=== PATIENT | female | born 1960 | race Caucasian/White ===

== ENCOUNTER 2018-09-20 09:54 | Inpatient (IN) | payer MEDICARE ==
[~2018-09-20] VITALS: Ht 157.5 cm; Wt 93.0 kg
[~2018-09-20 09:54] MED LIST: ALBU2.5V14 NEB; ALPR2TAB2 PO; ASCO500T3 PO; ASPI-630 PO; BUPR300T4 PO; CHOL10003 PO; CYAN1TAB15 SL; DOCU100C28 PO; ESTR1TAB15 PO; HYDR-2765 PO; LEVO200T PO; METO25TA4 PO; MIRT30TA3 PO; OMEG1CAP38 PO; OMEP20TA8 PO; OXYB15TA4 PO; PRAZ1CAP2 PO; SERT100T PO; SIMV20TA3 PO; SPIR1TAB PO; TIOT18CA IH
[2018-09-20 11:30] VITALS: BP 94/64
[2018-09-20] MEDS ORDERED: ALBU2.5V5 NEB (13:22)
[2018-09-20] MEDS ORDERED: GABA600T7 PO (13:22)
[2018-09-20] MEDS ORDERED: POTA20TA82 PO (13:22)
[2018-09-20] MEDS ORDERED: OXYB5TAB33 PO (13:22)
[2018-09-20] MEDS ORDERED: SERT100T PO (13:32)
[2018-09-20] MEDS ORDERED: POLY255P11 PO (13:32)
[2018-09-20] MEDS ORDERED: FURO20TA3 PO (13:32)
[2018-09-20] MEDS ORDERED: LEVO150T5 PO (13:32)
[2018-09-20] MEDS ORDERED: SACC250C PO (13:32)
[2018-09-20] MEDS ORDERED: METO10TA81 PO (13:32)
[2018-09-20] MEDS ORDERED: LIDO700A39 TP (13:32)
[2018-09-20] MEDS ORDERED: PRAZ5CAP2 PO (13:41)
[2018-09-20] MEDS ORDERED: ALPR2TAB5 PO (13:41)
[2018-09-20] MEDS ORDERED: OXYC1TAB15 PO (13:41)
[2018-09-20] MEDS ORDERED: OXYC-325 PO (13:41)
[2018-09-20] MEDS ORDERED: MIRT15TA3 PO (13:41)
[2018-09-20] MEDS: FUROSEMIDE 20 MG TABLET PO SCH (15:02)
[2018-09-20] MEDS: GABAPENTIN 300 MG CAPSULE. PO SCH ×2 (15:02→20:22)
[2018-09-20] MEDS: oxyCODONE/APAP 5/325 1 TAB TABLET PO PRN ×2 (15:03→19:32)
[2018-09-20 15:09] VITALS: BP 112/58
[2018-09-20] MEDS: ALBUTEROL SULFATE 2.5 MG/3 ML NEBU. NEB SCH ×2 (16:27→19:46)
[2018-09-20] MEDS: METOCLOPRAMIDE 10 MG TABLET. PO SCH ×2 (16:47→20:21)
[2018-09-20] MEDS: MICAFUNGIN 100 MG in IV DEXTROSE 5% 100ML 100 ML IV SCH (18:01)
[2018-09-20] MEDS: PIPERACILLIN/TAZOBACTAM 3.375 GM in IV NORMAL SALINE 50ML 50 ML IV SCH ×2 (19:04→23:54)
[2018-09-20] MEDS: VANCOMYCIN PER PHARMACY MC PRN (19:21)
--- NOTE | 2018-09-20 19:26 | NUR ---
Pharmacy Vancomycin Dosing Note S:Consulted to monitor and dose vancomycin started 09/20/18. O:FOSTER COX is a 57 year old F with Sepsis Height: 5 feet, 2 inches Weight: 93 kg [place] Body Weight: 50.10 Adjusted Body Weight: 67.26 Dosing Weight: Actual Other Antibiotics: Zosyn Mycamine LABS: Last BUN: 8 Last Creatinine: 0.8 Creatinine Clearance: 81 mL/min Last WBC: 2.1 Last Procalcitonin: Tmax (past 24 hours): 98.8 Last dose given 09/20/18 at 0855 (at [place]) Vancomycin Dosing: Loading Dose: 2000 mg x1 Dosing Weight: Actual Target Trough: 15-20 A: Based on: weight and renal function P: 1. Begin Vancomycin 1250 mg IV q12h 2. Follow up Trough level on 09/21/18 at 2030 3. Pharmacy will continue to monitor, follow and adjust therapy as needed. Sandra Tejada Dez, 09/20/18 [id number]
[2018-09-20] MEDS: ALPRAZolam 1 MG TABLET PO PRN (19:32)
[2018-09-20 19:34] VITALS: BP 146/71
[2018-09-20] MEDS: VANCOMYCIN 1.25 GM in IV NORMAL SALINE 250ML 250 ML IV SCH (20:20)
[2018-09-20] MEDS: PRAZOSIN 1 MG CAPSULE. PO SCH (20:21)
[2018-09-20] MEDS: POLYETHYLENE GLYCOL 3350 17 GM PACKET. PO SCH (20:22)
[2018-09-20] MEDS: LACTOBACILLUS RHAMNOSUS GG 1 CAPSULE. PO SCH (20:22)
[2018-09-20] MEDS: MIRTAZAPINE 15 MG TABLET PO SCH (20:22)
[2018-09-20] MEDS: METOPROLOL TART IMMED RELEASE 25 MG TABLET. PO SCH (20:22)
[2018-09-20] MEDS: SIMVASTATIN 20 MG TABLET PO SCH (20:23)
[2018-09-20 23:12] VITALS: BP 136/69
[2018-09-21 03:21] VITALS: BP 132/77
[2018-09-21] MEDS: oxyCODONE/APAP 5/325 1 TAB TABLET PO PRN ×4 (04:14→20:30)
[2018-09-21 05:25] LABS: BASO % 1 % (0-3); EOS # 0.1 x10^3/uL (0.0-0.7); EOS % 3 % (0-3); HEMATOCRIT 25.7 % (36.0-47.0); HEMOGLOBIN 8.5 g/dL (12.0-15.5); LYMPH % 44 % (24-48); MEAN CORPUSCULAR HEMOGLOBIN 29 pg (25-35); MEAN CORPUSCULAR HGB CONC 33 g/dL (31-37); MEAN CORPUSCULAR VOLUME 89 fL (79-100); MONO # 0.4 x10^3/uL (0.0-1.1); MONO % 17 % (0-9); NEUT # 0.8 x10^3uL (1.8-7.7); NEUT % 36 % (31-73); PLATELET COUNT 201 x10^3/uL (140-400); RED CELL DISTRIBUTION WIDTH 13.4 % (11.5-14.5); WHITE BLOOD COUNT 2.2 x10^3/uL (4.0-11.0)
[2018-09-21] MEDS: LEVOTHYROXINE 150 MCG TABLET PO SCH (05:45)
[2018-09-21] MEDS: PIPERACILLIN/TAZOBACTAM 3.375 GM in IV NORMAL SALINE 50ML 50 ML IV SCH ×3 (05:45→18:00)
[2018-09-21 06:03] LABS: ALBUMIN 2.6 g/dL (3.4-5.0); ALBUMIN/GLOBULIN RATIO 0.7 (1.0-1.7); CREATININE 0.6 mg/dL (0.6-1.0); GFR 102.7; POTASSIUM 3.1 mmol/L (3.5-5.1); TOTAL BILIRUBIN 0.2 mg/dL (0.2-1.0); TOTAL PROTEIN 6.4 g/dL (6.4-8.2)
[2018-09-21 07:22] VITALS: BP 132/71
[2018-09-21] MEDS ORDERED: POTASSIUM CHLORIDE 20 MEQ TABLET.ER. PO SCH (08:00)
[2018-09-21] MEDS: FUROSEMIDE 20 MG TABLET PO SCH ×2 (08:59→12:55)
[2018-09-21] MEDS: METOPROLOL TART IMMED RELEASE 25 MG TABLET. PO SCH ×2 (09:00→20:33)
[2018-09-21] MEDS: METOCLOPRAMIDE 10 MG TABLET. PO SCH ×4 (09:00→20:32)
[2018-09-21] MEDS: ESTRADIOL 1 MG TABLET. PO SCH (09:00)
[2018-09-21] MEDS ORDERED: LIDOCAINE (700MG/PATCH) PATCH. TD PRN (09:00)
[2018-09-21] MEDS: GABAPENTIN 300 MG CAPSULE. PO SCH ×3 (09:00→20:31)
[2018-09-21] MEDS: SERTRALINE 50 MG TABLET. PO SCH (09:00)
[2018-09-21] MEDS: OXYBUTYNIN CHLORIDE 5 MG TABLET PO SCH (09:00)
[2018-09-21] MEDS: LACTOBACILLUS RHAMNOSUS GG 1 CAPSULE. PO SCH ×2 (09:01→20:32)
[2018-09-21] MEDS: ALBUTEROL SULFATE 2.5 MG/3 ML NEBU. NEB SCH ×4 (09:08→19:56)
[2018-09-21] MEDS: POLYETHYLENE GLYCOL 3350 17 GM PACKET. PO SCH ×2 (09:59→20:27)
[2018-09-21 10:00] LABS: % ATYL 2 % (0-0); % BANDS 20 % (0-9); % EOS 4 % (0-5); % LYMPHS 38 % (24-48); % METAS 1 % (0-0); % MONOS 16 % (0-10); % MYELOS 1 % (0-0); % SEGS 18 % (35-66); PLT ESTIMATE ADEQUATE (ADEQUATE)
[2018-09-21] MEDS ORDERED: PIP/TAZO PER PHARMACY MC PRN (10:00)
[2018-09-21 10:01] LABS: POLYCHROMASIA SLIGHT; TEAR DROP CELLS OCC
[2018-09-21] MEDS: VANCOMYCIN 1.25 GM in IV NORMAL SALINE 250ML 250 ML IV SCH (10:03)
--- NOTE | 2018-09-21 10:39 | PDOC ---
Infectious Disease Note Vital Sign Vital Signs Vital Signs Date Time Temp Pulse Resp B/P (MAP) Pulse Ox O2 Delivery O2 Flow Rate FiO2 09/21/18 09:08 93 Room Air 09/21/18 09:00 97 132/71 09/21/18 07:22 98.7 18 2.0 98.7 Labs Lab Laboratory Tests Test 09/21/18 04:45 White Blood Count 2.2 x10^3/uL (4.0-11.0) Red Blood Count 2.90 x10^6/uL (3.50-5.40) Hemoglobin 8.5 g/dL (12.0-15.5) Hematocrit 25.7 % (36.0-47.0) Mean Corpuscular Volume 89 fL (79-100) Mean Corpuscular Hemoglobin 29 pg (25-35) Mean Corpuscular Hemoglobin Concent 33 g/dL (31-37) Red Cell Distribution Width 13.4 % (11.5-14.5) Platelet Count 201 x10^3/uL (140-400) Neutrophils (%) (Auto) 36 % (31-73) Lymphocytes (%) (Auto) 44 % (24-48) Monocytes (%) (Auto) 17 % (0-9) Eosinophils (%) (Auto) 3 % (0-3) Basophils (%) (Auto) 1 % (0-3) Neutrophils # (Auto) 0.8 x10^3uL (1.8-7.7) Lymphocytes # (Auto) 1.0 x10^3/uL (1.0-4.8) Monocytes # (Auto) 0.4 x10^3/uL (0.0-1.1) Eosinophils # (Auto) 0.1 x10^3/uL (0.0-0.7) Basophils # (Auto) 0.0 x10^3/uL (0.0-0.2) Segmented Neutrophils % 18 % (35-66) Band Neutrophils % 20 % (0-9) Lymphocytes % 38 % (24-48) Atypical Lymphocytes % (Manual) 2 % (0-0) Monocytes % 16 % (0-10) Eosinophils % 4 % (0-5) Metamyelocytes % 1 % (0-0) Myelocytes % 1 % (0-0) Platelet Estimate Adequate (ADEQUATE) Polychromasia Slight Tear Drop Cells Occ Sodium Level 141 mmol/L (136-145) Potassium Level 3.1 mmol/L (3.5-5.1) Chloride Level 103 mmol/L (98-107) Carbon Dioxide Level 26 mmol/L (21-32) Anion Gap 12 (6-14) Blood Urea Nitrogen 5 mg/dL (7-20) Creatinine 0.6 mg/dL (0.6-1.0) Estimated GFR (Cockcroft-Gault) 102.7 BUN/Creatinine Ratio 8 (6-20) Glucose Level 103 mg/dL (70-99) Calcium Level 8.0 mg/dL (8.5-10.1) Total Bilirubin 0.2 mg/dL (0.2-1.0) Aspartate Amino Transf (AST/SGOT) 23 U/L (15-37) Alanine Aminotransferase (ALT/SGPT) 11 U/L (14-59) Alkaline Phosphatase 123 U/L (46-116) Total Protein 6.4 g/dL (6.4-8.2) Albumin 2.6 g/dL (3.4-5.0) Albumin/Globulin Ratio 0.7 (1.0-1.7) Objective Assessment Sepsis - POA 4/2 H/o MSSA bacteremia Leukopenia - ? etiology - ? sepsis/virus/meds Back pain - improving anemia afib Plan Plan of Care Given PICC and abx I covered for potential line infection. PICC was d/cd and ordered Vanc/Zosyn/Micafungin F/u labs and cultures Chart reviewed Thank you # [id number] DELVIN ARORA MD Sep 21, 2018 10:39
[2018-09-21 10:57] VITALS: BP 119/68
[2018-09-21] MEDS: POTASSIUM CHLORIDE 20 MEQ TABLET.ER. PO SCH ×2 (12:56→20:33)
--- NOTE | 2018-09-21 13:51 | HP ---
ADMIT DATE: 09/21/2018 HISTORY OF PRESENT ILLNESS: The patient is a 57-year-old female patient who apparently was at [place] watching her granddaughter on 08/21/2018 when she woke up around 2:00 in the morning, was unable to walk because of severe back pain and was taken to the Emergency Room of [facility] where she was diagnosed with pneumonia and apparently had a PICC line, and from there she was transferred to [facility] where she was told that she has staph bacteremia. She was admitted to [place] on 08/22/2018 and was discharged on 08/27/2018. She was sent home with home health. Her sister was trained to give her antibiotics in the form of cefazolin. She apparently has grown methicillin-sensitive staph aureus and has been doing well up until last Wednesday, 5 days ago, when she started spiking her temperature, it has been going up and down. She came yesterday to the Emergency Room of [facility] with temperature of 104. She does have a cough, which is mostly dry, generalized aches and chills. She took Tylenol and that apparently takes care of the fever. She was evaluated in the Emergency Room and basically had a chest x-ray, which showed that the right PICC line is in satisfactory position, no acute cardiopulmonary abnormalities detected. Her lab work showed that she has actually leukopenia with white cell count only 2100. She has also had anemia with hemoglobin 9, hematocrit 27, although MCV was normal and platelet count was normal with normal manual differential. Her BUN and creatinine were normal. She does have also hyponatremia, hypokalemia. Her influenza A and B were negative, and was transferred to [facility] for further evaluation to consult the Infectious Disease specialist. PAST MEDICAL HISTORY: Significant for chronic obstructive pulmonary disease, fibromyalgia, hyperlipidemia. She has right middle cerebral artery territory infarct with left-sided hemiplegia with no neurological residual deficits. She is known to have hypothyroidism, osteoporosis, osteoarthritis, chronic back pain due to degenerative disk disease. She was noted to have obstructive sleep apnea for which she is on CPAP. PAST SURGICAL HISTORY: Significant for right knee arthroscopic surgery, tooth extraction, bladder suspension surgery, did not work out. She has had appendectomy, cholecystectomy, hysterectomy without oophorectomy. She had esophagogastroduodenoscopy and underwent colonoscopy and polypectomy. ALLERGIES: SHE IS ALLERGIC TO LYRICA AND LATEX GLOVES. MEDICATIONS: She is currently on following medications: She is on albuterol sulfate 2.5 mg 3 mL by nebulizer 4 times a day, simvastatin 20 mg at bedtime, prazosin 5 mg at bedtime, metoprolol tartrate 25 mg twice a day, oxycodone/APAP 5/325 two tablets every 4 hours as needed. She is also on gabapentin 600 mg 3 times a day, mirtazapine 15 mg at bedtime, sertraline for Zoloft 100 mg at bedtime, alprazolam 2 mg every 12 hours, potassium chloride 20 mEq daily, furosemide 20 mg twice a day, polyethylene glycol 17 grams twice a day, metoclopramide 10 mg before meals and bedtime. She is on Florastor 500 mg p.o. b.i.d., estradiol 1 mg daily, levothyroxine 150 mcg once a day, Lidoderm patch 2 patches applied on for 12 hours and off for 12 hours, oxybutynin chloride 5 mg daily. FAMILY HISTORY: She has 3 brothers and 7 sisters alive and healthy. One brother when he was a baby. Her mother at age of 60 because of lung cancer felt to be due to mesothelioma. Her father at age of 22 when she was only 7 months old. SOCIAL HISTORY: She is from her , but they are still best friends according to her. She has 2 daughters and one son. She quit smoking 7 years ago. She does not drink alcohol or use drugs. 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 REVIEW OF SYSTEMS: The patient denied any blurring of vision, cataract, glaucoma or macular degeneration. Denied any earache, tinnitus or sensorineural deafness. Denied any nosebleeds, stuffy nose or postnasal drip. Denied any sore throat, sore tongue, toothache, hoarseness of voice. Did complain of difficulty swallowing, especially for solids, but denied any weight loss. Denied any nausea, vomiting, diarrhea or constipation. Denied any hematemesis, melena or hematochezia. Denied any dysuria, frequency or hematuria. She did have urinary incontinence. Denied any chest pain. Did complain of shortness of breath, cough that is mostly dry, but denied any orthopnea or paroxysmal nocturnal dyspnea. Denied any chills. Denied any dizziness, lightheadedness, or vertigo. PHYSICAL EXAMINATION: GENERAL: When I examined her, she looked well and was clearly in no apparent respiratory distress, pale, but no jaundice, cyanosis, or thyromegaly. No jugular venous distention. No limb edema. VITAL SIGNS: Her heart rate was 97, blood pressure was 94/64, temperature was 98.8, respiratory rate 20, and oxygen saturation was 95% on 2 liters of oxygen. HEAD, EYES, EARS, NOSE AND THROAT: Showed normocephalic, atraumatic. NECK: Supple. HEART: Showed normal first and second heart sounds. No gallop, rub or murmur. CHEST: Clear to auscultation. No crepitation or rhonchi. ABDOMEN: Distended, soft, nontender. NEUROLOGIC: She was awake, alert, responding appropriately. All cranial nerves intact. She moves extremities without difficulty. She ambulates without assistance or assistive devices. LABORATORY DATA: Her lab work done at [facility] showed a white cell count of 2100, hemoglobin 9.2, hematocrit 27.8, MCV 87 and platelet count 205,000 with normal manual differential. Her chemistry showed a serum sodium 133, potassium 3.2, chloride 94, bicarbonate 29, anion gap of 10, BUN was 8, creatinine 0.8, estimated GFR was 74 mL per minute. Her glucose was 114, calcium was 9.4. Total protein was 7.2, albumin 3.1. Her total bilirubin, AST, ALT were normal. Alkaline phosphatase slightly elevated. Her influenza A and B were negative. Her chest x-ray was unremarkable and showed that the PICC line was in satisfactory position, but there was no acute cardiopulmonary abnormality detected. PLAN: My plan is to consult with the Infectious Disease specialist. We will do 2 more sets of blood cultures and urine culture. Continue all her home medications. TYRONE GARCIA MD DR: ROSE MARIE/lupe JOB#: [id number] / [id number]
[2018-09-21] MEDS: VANCOMYCIN PER PHARMACY MC PRN ×2 (14:12→22:08)
--- NOTE | 2018-09-21 16:07 | NUR ---
SW following pt for anticipated dc needs. Chart reviewed. Pt lives at home with spouse. ID consulted. No discharge recommendation and SW needs noted at this time. Will continue to assess needs.
[2018-09-21] MEDS: MICAFUNGIN 100 MG in IV DEXTROSE 5% 100ML 100 ML IV SCH (17:11)
--- NOTE | 2018-09-21 18:24 | PDOC2 ---
CONSULT Date of Consult Date of Consult DATE: 09/21/18 TIME: 18:12 Reason for consultation: Leukopenia Consult: Hematology oncology, Dr. Michelle Clemente History of present illness: She is a 57-year-old female with a history of leukopenia, with associated anemia, new, acute, moderate, to a neutrophil count of 800, and worsened due to suspected infection and possibly related to antibiotics. She has had a history of pneumonia treated on 21 August with discharge on 27 August with IV antibiotics and had fever to 104 and chills and myalgias and shortness of breath and cough prompting admitted to [facility] yesterday and transferred here today for ID consult. Currently on broad- spectrum antibiotics and PICC has been removed and afebrile while here. We were consulted due to leukopenia. 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, no alcohol or drugs Family history: Anesthesia reaction Review of systems: Headache, constipation, fevers improved, weight gain, sciatica left sided, cough, myalgias, chills, dysphagia Physical exam: Vitals reviewed Gen.: Well-nourished and well-developed in no acute distress HEENT: mucous membranes moist, head normocephalic atraumatic Neck: Supple, no lymphadenopathy Lymph nodes: No palpable lymphadenopathy neck or axilla Lungs: Breathing comfortably on 1 liter nasal cannula oxygen, no evidence of respiratory distress Heart: Regular rate and rhythm Abdomen: Soft, nontender, nondistended Extremities: No cyanosis or significant edema Skin: No obvious rashes or skin breakdown Neuro: Alert and oriented 3 Psych: Normal mood and affect Lab reviewed: White count 2.2, hemoglobin 8.5, platelets 201, MCV of 89, ANC of 800 Creatinine 0.6 Potassium 3.1 Alkaline phosphatase 123 T bili 0.2 Reports of negative influenza Rads reviewed: Reports of chest x-ray with no acute findings other than PICC line placement Case discussed with: Patient, and her friend at the bedside, records reviewed in [employer] and [facility], including labs and radiology reports as available, please see note for summary details. Assessment and Plan: She is a 57-year-old female admitted with fever and myalgias and shortness of breath to [facility] yesterday, who has had her PICC line removed and is on broad-spectrum antibiotics and afebrile while here at [facility] , with leukopenia and anemia Leukopenia: We will check a few labs, ANC of 800, afebrile while here, PICC has been removed, seems to be responding to current therapy, could consider G-CSF if neutrophils remaining less than 1000 and any clinical decompensation Anemia: We'll begin with lab work up Fevers and infection: ID is involved, improving Hypokalemia: Deferred to primary Thank you kindly for this consultation, and please do not hesitate to call with any questions, I will return on Wednesday morning but am available by phone in the interim as needed. Current Medications Current Medications Current Medications Albuterol Sulfate (Ventolin Neb Soln) 2.5 mg RTQID NEB Last administered on 09/21 15:46; Start 09/20/18 at 16:00 Estradiol (Estrace) 1 mg DAILY PO Last administered on 09/21/18 09:00; Start at 09:00 Furosemide (Lasix) 20 mg BID92 PO Last administered on 09/21/18 12:55; Start at 14:00 Metoclopramide HCl (Reglan) 10 mg QIDACHS PO Last administered on 09/21/18 17: 11; Start 09/20/18 at 16:30 Metoprolol Tartrate (Lopressor) 25 mg BID PO Last administered on 09/21/18 09: 00; Start 09/20/18 at 21:00 Oxycodone/ Acetaminophen (Percocet 5/325) 2 tab PRN Q4HRS PRN PO SEVERE PAIN Last administered on 09/21/18 15:33; Start 09/20/18 at 14:00 Oxycodone/ Acetaminophen (Percocet 5/325) 1 tab PRN Q4HRS PRN PO MODERATE PAIN ; Start 09/20/18 at 14:00 Alprazolam (Xanax) 2 mg PRN Q12HRS PRN PO ANXIETY / AGITATION Last administered on 09/20/18 19:32; Start 09/20/18 at 14:15 Gabapentin (Neurontin) 600 mg TID PO Last administered on 09/21/18 12:55; Start 09/20/18 at 14:15 Levothyroxine Sodium (Synthroid) 150 mcg DAILY06 PO Last administered on 05:45; Start 09/21/18 at 06:00 Lidocaine (Lidoderm) 2 patch PRN DAILY PRN TD TOPICAL PAIN; Start 09/21/18 at 09 :00 Mirtazapine (Remeron) 15 mg QHS PO Last administered on 09/20/18 20:22; Start 09/20/18 at 21:00 Oxybutynin Chloride (Ditropan) 5 mg DAILY PO Last administered on 09/21/18 09: 00; Start 09/21/18 at 09:00 Polyethylene Glycol (miraLAX PACKET) 17 gm BID PO Last administered on 09:59; Start 09/20/18 at 21:00 Potassium Chloride (Klor-Con) 20 meq DAILYWBKFT PO Last administered on 09:01; Start 09/21/18 at 08:00; Stop 09/21/18 at 12:46; Status DC Prazosin HCl (Minipress) 5 mg QHS PO Last administered on 09/20/18 20:21; Start 09/20/18 at 21:00 Lactobacillus Rhamnosus (Culturelle) 1 cap BID PO Last administered on 09:01; Start 09/20/18 at 21:00 Sertraline HCl (Zoloft) 200 mg DAILY PO Last administered on 09/21/18 09:00; Start 09/21/18 at 09:00 Simvastatin (Zocor) 20 mg HS PO Last administered on 09/20/18 20:23; Start 09/20 at 21:00 Vancomycin HCl (Vanco Per Pharmacy) 1 each PRN DAILY PRN MC SEE COMMENTS Last administered on 09/21/18 14:12; Start 09/21/18 at 08:00 Piperacillin Sod/ Tazobactam Sod (Zosyn Per Pharmacy) 1 each PRN DAILY PRN MC SEE COMMENTS; Start 09/21/18 at 10:00 Piperacillin Sod/ Tazobactam Sod 3.375 gm/Sodium Chloride 50 ml @ 100 mls/hr Q6HRS IV Last administered on 09/21/18at 12:56; Start 09/20/18 at 18:00 Vancomycin HCl 1.25 gm/Sodium Chloride 250 ml @ 167 mls/hr Q12H IV Last administered on 09/21/18at 10:03; Start 09/20/18 at 21:00 Micafungin Sodium 100 mg/Dextrose 100 ml @ 100 mls/hr Q24H IV Last administered on 09/21/18at 17:11; Start 09/20/18 at 16:30 Vancomycin HCl (Vancomycin Trough Level) 1 each 1X ONCE MC ; Start 09/21/18 at 20:30; Stop 09/21/18 at 20:31 Potassium Chloride (Klor-Con) 20 meq TID PO Last administered on 09/21/18at 12:56 ; Start 09/21/18 at 14:00 Active Scripts Active Reported Mirtazapine 15 Mg Tablet 1 Tab PO QHS Prazosin Hcl 5 Mg Capsule 1 Cap PO QHS Alprazolam 2 Mg Tablet 2 Mg PO PRN Q12HR PRN Percocet 5-325 mg Tablet (Oxycodone HCl/Acetaminophen) 1 Each Tablet 2 Each PO PRN Q4HRS PRN Percocet 5-325 Mg Tablet (Oxycodone/Acetaminophen) 1 Each Tablet 1 Tab PO PRN Q4HRS PRN Lidocaine 1 Each Adh..patch 2 Each TP PRN PRN Florastor (Saccharomyces Boulardii) 250 Mg Capsule 500 Mg PO BID Polyethylene Glycol 3350 255 Gm Powder 17 Gm PO BID Furosemide 20 Mg Tablet 20 Mg PO BID Levothyroxine Sodium 150 Mcg Tablet 150 Mcg PO DAILYAC Zoloft (Sertraline Hcl) 100 Mg Tablet 200 Mg PO DAILY Reglan (Metoclopramide Hcl) 10 Mg Tablet 10 Mg PO QIDACHS Albuterol Sulfate Neb Soln (Albuterol Sulfate) 2.5 Mg/3 Ml Vial.neb 5 Mg NEB QID Ditropan Xl (Oxybutynin Chloride) 5 Mg Tab.er.24 1 Tab PO DAILY Potassium Chloride 20 Meq Tablet.er 20 Meq PO DAILY Gabapentin 600 Mg Tablet 600 Mg PO TID Simvastatin 20 Mg Tablet 20 Mg PO HS Metoprolol Tartrate 25 Mg Tablet 25 Mg PO BID Estradiol 1 Mg Tablet 1 Mg PO DAILY Allergies Allergies: Coded Allergies: latex (Verified Allergy, Severe, Swelling, 01/29/16) pregabalin (Verified Allergy, Severe, Swelling, 01/29/16) Vitals VITALS Vital Signs Date Time Temp Pulse Resp B/P (MAP) Pulse Ox O2 Delivery O2 Flow Rate FiO2 09/21/18 16:33 16 1.0 09/21/18 15:46 98 Nasal Cannula 09/21/18 10:57 98.1 83 119/68 (85) 98.1 Labs Labs Laboratory Tests Test 09/21/18 04:45 White Blood Count 2.2 x10^3/uL (4.0-11.0) Red Blood Count 2.90 x10^6/uL (3.50-5.40) Hemoglobin 8.5 g/dL (12.0-15.5) Hematocrit 25.7 % (36.0-47.0) Mean Corpuscular Volume 89 fL (79-100) Mean Corpuscular Hemoglobin 29 pg (25-35) Mean Corpuscular Hemoglobin Concent 33 g/dL (31-37) Red Cell Distribution Width 13.4 % (11.5-14.5) Platelet Count 201 x10^3/uL (140-400) Neutrophils (%) (Auto) 36 % (31-73) Lymphocytes (%) (Auto) 44 % (24-48) Monocytes (%) (Auto) 17 % (0-9) Eosinophils (%) (Auto) 3 % (0-3) Basophils (%) (Auto) 1 % (0-3) Neutrophils # (Auto) 0.8 x10^3uL (1.8-7.7) Lymphocytes # (Auto) 1.0 x10^3/uL (1.0-4.8) Monocytes # (Auto) 0.4 x10^3/uL (0.0-1.1) Eosinophils # (Auto) 0.1 x10^3/uL (0.0-0.7) Basophils # (Auto) 0.0 x10^3/uL (0.0-0.2) Segmented Neutrophils % 18 % (35-66) Band Neutrophils % 20 % (0-9) Lymphocytes % 38 % (24-48) Atypical Lymphocytes % (Manual) 2 % (0-0) Monocytes % 16 % (0-10) Eosinophils % 4 % (0-5) Metamyelocytes % 1 % (0-0) Myelocytes % 1 % (0-0) Platelet Estimate Adequate (ADEQUATE) Polychromasia Slight Tear Drop Cells Occ Sodium Level 141 mmol/L (136-145) Potassium Level 3.1 mmol/L (3.5-5.1) Chloride Level 103 mmol/L (98-107) Carbon Dioxide Level 26 mmol/L (21-32) Anion Gap 12 (6-14) Blood Urea Nitrogen 5 mg/dL (7-20) Creatinine 0.6 mg/dL (0.6-1.0) Estimated GFR (Cockcroft-Gault) 102.7 BUN/Creatinine Ratio 8 (6-20) Glucose Level 103 mg/dL (70-99) Calcium Level 8.0 mg/dL (8.5-10.1) Total Bilirubin 0.2 mg/dL (0.2-1.0) Aspartate Amino Transf (AST/SGOT) 23 U/L (15-37) Alanine Aminotransferase (ALT/SGPT) 11 U/L (14-59) Alkaline Phosphatase 123 U/L (46-116) Total Protein 6.4 g/dL (6.4-8.2) Albumin 2.6 g/dL (3.4-5.0) Albumin/Globulin Ratio 0.7 (1.0-1.7) Laboratory Tests Test 09/21/18 04:45 White Blood Count 2.2 x10^3/uL (4.0-11.0) Red Blood Count 2.90 x10^6/uL (3.50-5.40) Hemoglobin 8.5 g/dL (12.0-15.5) Hematocrit 25.7 % (36.0-47.0) Mean Corpuscular Volume 89 fL (79-100) Mean Corpuscular Hemoglobin 29 pg (25-35) Mean Corpuscular Hemoglobin Concent 33 g/dL (31-37) Red Cell Distribution Width 13.4 % (11.5-14.5) Platelet Count 201 x10^3/uL (140-400) Neutrophils (%) (Auto) 36 % (31-73) Lymphocytes (%) (Auto) 44 % (24-48) Monocytes (%) (Auto) 17 % (0-9) Eosinophils (%) (Auto) 3 % (0-3) Basophils (%) (Auto) 1 % (0-3) Neutrophils # (Auto) 0.8 x10^3uL (1.8-7.7) Lymphocytes # (Auto) 1.0 x10^3/uL (1.0-4.8) Monocytes # (Auto) 0.4 x10^3/uL (0.0-1.1) Eosinophils # (Auto) 0.1 x10^3/uL (0.0-0.7) Basophils # (Auto) 0.0 x10^3/uL (0.0-0.2) Segmented Neutrophils % 18 % (35-66) Band Neutrophils % 20 % (0-9) Lymphocytes % 38 % (24-48) Atypical Lymphocytes % (Manual) 2 % (0-0) Monocytes % 16 % (0-10) Eosinophils % 4 % (0-5) Metamyelocytes % 1 % (0-0) Myelocytes % 1 % (0-0) Platelet Estimate Adequate (ADEQUATE) Polychromasia Slight Tear Drop Cells Occ Sodium Level 141 mmol/L (136-145) Potassium Level 3.1 mmol/L (3.5-5.1) Chloride Level 103 mmol/L (98-107) Carbon Dioxide Level 26 mmol/L (21-32) Anion Gap 12 (6-14) Blood Urea Nitrogen 5 mg/dL (7-20) Creatinine 0.6 mg/dL (0.6-1.0) Estimated GFR (Cockcroft-Gault) 102.7 BUN/Creatinine Ratio 8 (6-20) Glucose Level 103 mg/dL (70-99) Calcium Level 8.0 mg/dL (8.5-10.1) Total Bilirubin 0.2 mg/dL (0.2-1.0) Aspartate Amino Transf (AST/SGOT) 23 U/L (15-37) Alanine Aminotransferase (ALT/SGPT) 11 U/L (14-59) Alkaline Phosphatase 123 U/L (46-116) Total Protein 6.4 g/dL (6.4-8.2) Albumin 2.6 g/dL (3.4-5.0) Albumin/Globulin Ratio 0.7 (1.0-1.7) MICHELLE CLEMENTE MD Sep 21, 2018 18:24
[2018-09-21 19:57] VITALS: BP 133/81
[2018-09-21] MEDS: ALPRAZolam 1 MG TABLET PO PRN (20:28)
[2018-09-21] MEDS: PRAZOSIN 1 MG CAPSULE. PO SCH (20:31)
[2018-09-21] MEDS: MIRTAZAPINE 15 MG TABLET PO SCH (20:32)
[2018-09-21] MEDS: SIMVASTATIN 20 MG TABLET PO SCH (20:32)
[2018-09-21 21:24] LABS: VANC TR 12.7 mcg/mL (10.0-20.0)
--- NOTE | 2018-09-21 22:08 | NUR ---
Pharmacy Vancomycin Dosing Note S:Consulted to monitor and dose vancomycin started 09/20/18. O:FOSTER COX is a 57 year old F with Sepsis possible line infection . Height: 5 feet, 2 inches Weight: 93.200109 kg [place] Body Weight: 50.10 Adjusted Body Weight: 67.26 Dosing Weight: Actual Other Antibiotics: Zosyn Mycamine LABS: Last BUN: 5 Last Creatinine: 0.6 Creatinine Clearance: >100 mL/min Last WBC: 2.2 Last Procalcitonin: Tmax (past 24 hours): 98.7 Microbiology: I/O: 650/400 Drug Levels: Last Trough level: 12.7, 10 H TROUGH on 09/21/18 at 2030 Last dose given 09/21/18 at 1003 Vancomycin Dosing: Loading Dose: 2000 mg x1 Dosing Weight: Actual Target Trough: 15-20 A: Based on: SUBTHERAPEUTIC TROUGH FOR INDICATION, P: 1. INITIATE NEW REGIMEN OF Vancomycin 1000 mg IV q8h 2. Follow up Trough level on 09/22/18 at 2230 3. Pharmacy will continue to monitor, follow and adjust therapy as needed. EMELY JEREZ [facility], 09/21/18 [id number]
--- NOTE | 2018-09-21 22:30 | CONS ---
DATE OF CONSULTATION: 09/21/2018 LOCATION: The patient's room is 663. REQUESTING PHYSICIAN: Dr. Mcnulty. REASON FOR CONSULTATION: Sepsis. HISTORY OF PRESENT ILLNESS: The patient is a 57-year-old female, with a known history of COPD and atrial fibrillation, who was transferred to [facility] from [facility] for intractable back pain. At [place], she underwent an MRI and there is report that the MRI was not suspicious for diskitis, but that was too early, these findings were not evident on MRI. She states that she has a disk protrusion that is putting pressure on her sciatic nerve. While at [place], she had MSSA bacteremia. She had a right upper lobe pneumonia and she was subsequently discharged home with PICC line and cefazolin. She lives with her sister. She has been getting cefazolin q. 8. Denies any ill contacts, but yesterday, developed fever as high as 104. She was discharged from [place] on 09/07/2018 with 6 weeks of IV antibiotics. On arrival to [facility] yesterday, she had a temperature of 101. Laboratory values were obtained. She had a white count of 2.1 with 69 neutrophils, 45 segs, 26 bands and 23 lymphs. Creatinine was 0.8, AST was 13, ALT was 30, alkaline phosphatase was 149. Influenza screen was negative. Chest x-ray was obtained that showed no acute cardiopulmonary abnormality. She was given doses of vancomycin and Zosyn and transferred to [facility]. I was consulted yesterday afternoon. I added vancomycin and Zosyn and because of her PICC line and antibiotics, added micafungin as well. This morning, the patient is feeling better already. She had chills and sweats and in addition to the fever, she had headache that has improved. No gross sinus issues. She is on chronic oxygen. No gross sputum production. No chest pain. She has issues with chronic constipation. She had no problems with change in urine color, but she does have a history of urinary incontinence as well. Her back pain, states she has been improving, although she continues to have pain down her leg. Denies any rashes. PAST MEDICAL HISTORY: Positive for MSSA bacteremia, history of right upper lobe infiltrate, not suspected to be pneumonia; acute on chronic back pain, hypotension, hyponatremia, anemia of chronic disease, paroxysmal atrial fibrillation, depression, stage 3 renal insufficiency, dependent edema, COPD, history of CVA, hypertension, obesity, urinary incontinence, history of right anterior cruciate ligament arthropathy. PAST SURGICAL HISTORY: Positive for appendectomy, cholecystectomy and hysterectomy. REVIEW OF SYSTEMS: Otherwise negative. ALLERGIES: LISTED LATEX AND PREGABALIN. SOCIAL HISTORY: Lives with her sister. Does have cats. She quit smoking 7 years ago. Denies any alcohol use. FAMILY HISTORY: Negative. CURRENT MEDICATIONS: Micafungin, Zosyn, vancomycin, albuterol, Xanax, Estrace, Lasix, Neurontin, Lactobacillus, Synthroid, Reglan, Remeron, potassium, Minipress, Zoloft, Zocor. PHYSICAL EXAMINATION: VITAL SIGNS: She has been afebrile since her arrival here, temperature 98.7, pulse 97, respirations 18, blood pressure 132/71, satting 93% on 2 liters. CONSTITUTIONAL: She is a pleasant lady. She is cooperative. She is in no acute distress. She wears glasses. She is sitting up on the side of bed. HEENT: Pupils are equal and reactive with normal conjunctivae. Extraocular muscles were intact. Oral cavity, pharynx is edentulous, dry. LUNGS: Decreased in the bases, but clear. HEART: S1, S2, without murmur. ABDOMEN: Obese, soft, nontender, nondistended with positive bowel sounds. No guarding. EXTREMITIES: Without clubbing or cyanosis. Trace edema. SKIN: Warm to touch without signs of rash. INTRAVENOUS LINES: Left upper extremity peripheral without signs of complications. Previous PICC site, no problems. NEUROLOGIC: She is nonfocal, does have some leg pain. Answers questions appropriately. PSYCHIATRIC: Affect is appropriate. LABORATORY DATA: White count 2.2, hemoglobin 8.5, neutrophils 36, lymphs 44, monos are 7, eosinophils were 3, normal. Creatinine 0.6, glucose of 103, AST 23, ALT 11, alkaline phosphatase 123. IMPRESSION: 1. Sepsis, present on admission, 09/20/2018. 2. History of methicillin-sensitive Staphylococcus aureus bacteremia. 3. Leukopenia, questionable etiology, questionable sepsis versus virus versus medications. 4. Back pain, is improving. 5. Anemia. 6. History of atrial fibrillation. RECOMMENDATIONS: Given PICC and antibiotics to cover for potential line infection. Continue the vancomycin and Zosyn and added micafungin. Follow up labs and cultures. Chart was reviewed. Thanks for the opportunity to participate in the patient's care. Should you have any further questions, please do not hesitate to contact me. DELVIN ARORA MD DR: KEYSHA/lupe JOB#: [id number] / [id number]
[2018-09-21 23:41] VITALS: BP 111/66
[2018-09-22] MEDS: oxyCODONE/APAP 5/325 1 TAB TABLET PO PRN ×8 (00:40→23:03)
[2018-09-22] MEDS: PIPERACILLIN/TAZOBACTAM 3.375 GM in IV NORMAL SALINE 50ML 50 ML IV SCH ×5 (00:41→23:03)
[2018-09-22] MEDS: VANCOMYCIN 1 GM in IV NORMAL SALINE 250ML 250 ML IV SCH ×4 (01:31→23:52)
[2018-09-22 03:45] VITALS: BP 120/62
--- NOTE | 2018-09-22 05:05 | PN ---
DATE: 09/21/2018 SUBJECTIVE: The patient is resting slightly propped up in bed, in no apparent respiratory distress. On questioning her, she denied any complaints. When I examined her, she apparently was seen yesterday by Dr. Barros who basically discontinued her PICC line and sent blood cultures and was started on vancomycin, Zosyn, and micafungin. PHYSICAL EXAMINATION: GENERAL: When I examined her this afternoon, she looked well and was clearly in no apparent respiratory distress, slightly pale. Not jaundiced or cyanosed from thyromegaly. No jugular venous distension. No limb edema. VITAL SIGNS: Her heart rate was 83, blood pressure was 119/68, temperature was 98.1, respiratory rate was 20 and oxygen saturation was 92% on 2 liters of oxygen. HEAD, EYES, EARS, NOSE AND THROAT: Showed normocephalic, atraumatic. NECK: Supple. HEART: Showed normal first and second sounds. No gallop or murmur. CHEST: Clear to auscultation. No crepitation or rhonchi. ABDOMEN: Distended, soft, nontender. NEUROLOGIC: She is awake, alert, responding appropriately. Cranial nerves are intact. She moves extremities without difficulty. She ambulates without assistance or assistive devices. Her intake and output are incompletely recorded. LABORATORY DATA: This morning showed a serum sodium 141, potassium 3.1, chloride 103, bicarbonate 26, anion gap of 12, BUN 5, creatinine 0.6, estimated GFR was 102.7 mL per minute. Her glucose was 103, calcium was 8. Total bilirubin, AST, ALT are normal. Alkaline phosphatase slightly elevated. Total protein was 6.4, albumin 2.6. Her white cell count was 2200; hemoglobin 8.5; hematocrit 25.7; MCV 89; platelet count 201,000 with a manual differential showed that her 36% were polymorphs, 44% lymphocytes, 17% monocytes. She has also 2% atypical lymphocytes and she has metamyelocytes and myelocytes. In summary, this is a 57-year-old female patient who was admitted on 08/22/2018 to [facility] for pneumonia and what seemed to be methicillin-sensitive Staphylococcus aureus bacteremia for which she had a PICC line placed and was on Ancef since then. Her sister used to administer the antibiotics for her and she has home health. Over the last 5 days, she started having recurrent episode of fever and yesterday she had a temperature of up to 104 and presented to the Emergency Room at [facility] where she basically was found to have marked leukopenia, anemia and was transferred to [facility] for further evaluation. Her PICC line was removed and she was sent for culture and sensitivity. Her antibiotics were switched to vancomycin, Zosyn and micafungin. My plan is to order the medical record from [facility] and from [place] also and given the leukopenia and the fact that she has lymphocytosis and abnormal metamyelocytes or myelocytes, I would consult the fast food shift lead also to assist with her management. The patient also has hypokalemia. I will replenish that orally and we will monitor her labs closely. TYRONE GARCIA MD DR: ROS EMARIE/lupe JOB#: [id number] / [id number]
[2018-09-22] MEDS: LEVOTHYROXINE 150 MCG TABLET PO SCH (05:45)
[2018-09-22 07:15] VITALS: BP 123/69
[2018-09-22] MEDS: ALBUTEROL SULFATE 2.5 MG/3 ML NEBU. NEB SCH ×4 (08:08→19:41)
[2018-09-22] MEDS: GABAPENTIN 300 MG CAPSULE. PO SCH ×3 (08:12→20:14)
[2018-09-22] MEDS: POTASSIUM CHLORIDE 20 MEQ TABLET.ER. PO SCH ×3 (08:12→20:16)
[2018-09-22] MEDS: FUROSEMIDE 20 MG TABLET PO SCH ×2 (08:13→14:04)
[2018-09-22] MEDS: ESTRADIOL 1 MG TABLET. PO SCH (08:13)
[2018-09-22] MEDS: OXYBUTYNIN CHLORIDE 5 MG TABLET PO SCH (08:13)
[2018-09-22] MEDS: METOPROLOL TART IMMED RELEASE 25 MG TABLET. PO SCH ×2 (08:13→20:14)
[2018-09-22] MEDS: LACTOBACILLUS RHAMNOSUS GG 1 CAPSULE. PO SCH ×2 (08:13→20:16)
[2018-09-22] MEDS: SERTRALINE 50 MG TABLET. PO SCH (08:15)
[2018-09-22] MEDS: METOCLOPRAMIDE 10 MG TABLET. PO SCH ×4 (08:15→20:17)
[2018-09-22] MEDS: POLYETHYLENE GLYCOL 3350 17 GM PACKET. PO SCH ×2 (08:15→20:17)
--- NOTE | 2018-09-22 08:22 | PDOC ---
Infectious Disease Note Vital Sign Vital Signs Vital Signs Date Time Temp Pulse Resp B/P (MAP) Pulse Ox O2 Delivery O2 Flow Rate FiO2 09/22/18 08:14 Nasal Cannula 09/22/18 08:13 75 123/69 09/22/18 08:09 95 1.0 09/22/18 07:15 98.6 17 98.6 Physical Exam PHYSICAL EXAM CONSTITUTIONAL: She is a pleasant lady. She is cooperative. She is in no acute distress. She wears glasses. She is sitting up on the side of bed. HEENT: Pupils are equal and reactive with normal conjunctivae. Extraocular muscles were intact. Oral cavity, pharynx is edentulous, dry. LUNGS: Decreased in the bases, but clear. HEART: S1, S2, without murmur. ABDOMEN: Obese, soft, nontender, nondistended with positive bowel sounds. No guarding. EXTREMITIES: Without clubbing or cyanosis. Trace edema. SKIN: Warm to touch without signs of rash. INTRAVENOUS LINES: Left upper extremity peripheral without signs of complications. Previous PICC site, no problems. NEUROLOGIC: She is nonfocal, does have some leg pain. Answers questions appropriately. PSYCHIATRIC: Affect is appropriate. Labs Lab Laboratory Tests Test 09/21/18 20:30 Vancomycin Level Trough 12.7 mcg/mL (10.0-20.0) Vancomycin Last Dose Date 09/21/18 Vancomycin Last Dose Time 0900 Objective Assessment Sepsis - POA 4/2 H/o MSSA bacteremia Leukopenia - ? etiology - ? sepsis/virus/meds Back pain - improving anemia afib Plan Plan of Care Given PICC and abx I covered for potential line infection. PICC was d/cd and ordered Vanc/Zosyn/Micafungin F/u labs and cultures Chart reviewed Thank you # [id number] DELVIN ARORA MD Sep 22, 2018 08:22
[2018-09-22 09:17] LABS: BASO % 1 % (0-3); EOS # 0.2 x10^3/uL (0.0-0.7); EOS % 7 % (0-3); HEMATOCRIT 28.4 % (36.0-47.0); HEMOGLOBIN 9.4 g/dL (12.0-15.5); LYMPH # 0.9 x10^3/uL (1.0-4.8); LYMPH % 36 % (24-48); MEAN CORPUSCULAR HEMOGLOBIN 29 pg (25-35); MEAN CORPUSCULAR HGB CONC 33 g/dL (31-37); MEAN CORPUSCULAR VOLUME 88 fL (79-100); MONO # 0.4 x10^3/uL (0.0-1.1); MONO % 14 % (0-9); NEUT # 1.1 x10^3uL (1.8-7.7); NEUT % 42 % (31-73); PLATELET COUNT 228 x10^3/uL (140-400); RED BLOOD COUNT 3.21 x10^6/uL (3.50-5.40); RED CELL DISTRIBUTION WIDTH 13.9 % (11.5-14.5); WHITE BLOOD COUNT 2.6 x10^3/uL (4.0-11.0)
[2018-09-22 09:37] LABS: CREATININE 0.6 mg/dL (0.6-1.0); GFR 102.7; POTASSIUM 3.7 mmol/L (3.5-5.1)
[2018-09-22] MEDS: NYSTATIN TOPICAL POWDER 15GM BOTTLE. TP SCH ×2 (11:41→20:18)
[2018-09-22 11:59] VITALS: BP 122/74
[2018-09-22] MEDS: VANCOMYCIN PER PHARMACY MC PRN (13:55)
[2018-09-22 14:57] VITALS: BP 110/59
--- NOTE | 2018-09-22 15:36 | NUR ---
SW following pt. SW faxed pt's face sheet to screen if pt has home infusion benefit. SW will continue to follow.
[2018-09-22] MEDS: MICAFUNGIN 100 MG in IV DEXTROSE 5% 100ML 100 ML IV SCH (16:18)
[2018-09-22 19:00] VITALS: BP 102/45
[2018-09-22] MEDS: PRAZOSIN 1 MG CAPSULE. PO SCH (20:13)
[2018-09-22] MEDS: ALPRAZolam 1 MG TABLET PO PRN (20:15)
[2018-09-22] MEDS: MIRTAZAPINE 15 MG TABLET PO SCH (20:16)
[2018-09-22] MEDS: SIMVASTATIN 20 MG TABLET PO SCH (20:17)
[2018-09-22 23:00] VITALS: BP 90/53
[2018-09-22 23:14] LABS: VANC TR 13.7 mcg/mL (10.0-20.0)
--- NOTE | 2018-09-23 01:31 | PN ---
DATE: 09/22/2018 SUBJECTIVE: The patient is sitting slightly propped up in bed, in no apparent distress. On questioning her, she is feeling generally much better, has had no fever. Her white cell count is improving slowly, is up today to 2.6. Her potassium is much improved this morning. She was seen by the supervisor varnish and her vitamin B12 was well within normal limit at 1250 ____. Her serum iron is low. TIBC and percent saturation was low. Her serum ferritin was 89 consistent with anemia of chronic disease. Her HIV 1 and 2 antibodies screen were negative. OBJECTIVE: GENERAL: On examining her, she looked pale, but no jaundice, cyanosis or thyromegaly. No jugular venous distension. No lower limb edema. VITAL SIGNS: Her heart rate was 82, blood pressure was 120/62, temperature was 99.3, respiratory rate was 16, and oxygen saturation was 93% on 2 liters of oxygen. HEAD, EYES, EARS, NOSE AND THROAT: Showed normocephalic, atraumatic. NECK: Supple. HEART: Showed normal first and second sounds. No gallop, rub or murmur. CHEST: Clear to auscultation. No crepitation or rhonchi. ABDOMEN: Distended, soft, nontender. NEUROLOGIC: She was awake, alert, responding appropriately. All cranial nerves intact. She moves extremities without difficulty. Her intake over the last 24 hours was 650, output was 400. LABORATORY DATA: As of this morning, her vancomycin trough level was 12.7, which is well within therapeutic range. Her white cell count was up to 2.6, hemoglobin 9.4, hematocrit 28.4, MCV 88 and platelet count 228,000. Her chemistry showed a serum sodium 142, potassium 3.7, chloride 106, bicarbonate 25, anion gap of 11, BUN 2, creatinine 0.6, estimated GFR was 103 mL per minute. Her glucose 107, calcium was 8. ASSESSMENT AND PLAN: The patient was admitted on 08/22/2018 to [facility] as a transfer from [facility] and was treated for pneumonia. Apparently has grown methicillin-sensitive Staphylococcus aureus for which she has a PICC line placed and was on Ancef since that time. Has been doing very well. Over the last 5 days, she started having recurrent episode of fever and her temperature on the day before the admission was up to 104 degrees Fahrenheit and she presented to the Emergency Room of [facility] where she was found to have marked leukopenia and anemia and was transferred to [facility] for further evaluation. Her PICC line was removed. Her blood and urine was sent for culture and sensitivity. Her antibiotic was switched to vancomycin, Zosyn, and micafungin. We did request medical records from [place] and also from [facility]. She was seen in consultation also by the supervisor varnish and she did recommend G-CSF if neutrophil remaining less than 1000 or she demonstrated any clinical decompensation. TYRONE GARCIA MD DR: ROSE MARIE/lupe JOB#: [id number] / [id number]
[2018-09-23] MEDS: VANCOMYCIN PER PHARMACY MC PRN (01:43)
--- NOTE | 2018-09-23 01:44 | NUR ---
Pharmacy Vancomycin Dosing Note S: Consulted to monitor and dose vancomycin started 09/20/18. O: FOSTER COX is a 57 year old F with Sepsis, possible line infection . Other Antibiotics: Zosyn Micafungin LABS: Last BUN: 2 Last Creatinine: 0.6 Creatinine Clearance: >100 mL/min Last WBC: 2.6 Last Procalcitonin: Not PNA Tmax (past 24 hours): 99.6 Microbiology: Blood cultures from [facility] 09/22/18 I/O: 1420/8 Drug Levels: Last Trough level: 13.7 on 09/22/18 at 2230 Last dose given 09/22/18 at 1406 Vancomycin Dosing: Dosing Weight: Actual Target Trough: 15-20 A: Based on: Trough, Actual Wt and CrCl P: 1. 09/22/18 Continue Vancomycin 1000 mg IV q8h 2. Follow up Trough level as needed. 3. Pharmacy will continue to monitor, follow and adjust therapy as needed. LAITH IGLESIAS RPH, 09/23/18 0144 Signed: 09/23/18 at 0145 by LAITH IGLESIAS RPH PHA
[2018-09-23] MEDS: oxyCODONE/APAP 5/325 1 TAB TABLET PO PRN ×5 (02:13→20:45)
[2018-09-23 03:00] VITALS: BP 124/72
[2018-09-23 05:02] LABS: BASO % 1 % (0-3); EOS # 0.3 x10^3/uL (0.0-0.7); EOS % 9 % (0-3); HEMATOCRIT 24.4 % (36.0-47.0); HEMOGLOBIN 7.9 g/dL (12.0-15.5); LYMPH # 1.3 x10^3/uL (1.0-4.8); LYMPH % 43 % (24-48); MEAN CORPUSCULAR HEMOGLOBIN 29 pg (25-35); MEAN CORPUSCULAR HGB CONC 33 g/dL (31-37); MEAN CORPUSCULAR VOLUME 89 fL (79-100); MONO # 0.4 x10^3/uL (0.0-1.1); MONO % 14 % (0-9); NEUT % 34 % (31-73); PLATELET COUNT 217 x10^3/uL (140-400); RED BLOOD COUNT 2.74 x10^6/uL (3.50-5.40); RED CELL DISTRIBUTION WIDTH 13.6 % (11.5-14.5); WHITE BLOOD COUNT 2.9 x10^3/uL (4.0-11.0)
[2018-09-23 05:30] LABS: CALCIUM 7.7 mg/dL (8.5-10.1); CREATININE 0.8 mg/dL (0.6-1.0); GFR 73.7; POTASSIUM 4.1 mmol/L (3.5-5.1)
[2018-09-23] MEDS: LEVOTHYROXINE 150 MCG TABLET PO SCH (05:31)
[2018-09-23] MEDS: PIPERACILLIN/TAZOBACTAM 3.375 GM in IV NORMAL SALINE 50ML 50 ML IV SCH (05:32)
[2018-09-23] MEDS: VANCOMYCIN 1 GM in IV NORMAL SALINE 250ML 250 ML IV SCH (06:30)
[2018-09-23 07:00] VITALS: BP 132/54
--- NOTE | 2018-09-23 07:59 | PDOC ---
Infectious Disease Note Subjective Subjective Doing ok. Denies F/C/S/N/V/D/SOA/Rash Back and leg and pain ok ROS ROS o/w neg Vital Sign Vital Signs Vital Signs Date Time Temp Pulse Resp B/P (MAP) Pulse Ox O2 Delivery O2 Flow Rate FiO2 09/23/18 06:30 Nasal Cannula 1.0 09/23/18 03:00 98.9 78 18 124/72 (89) 96 98.9 Physical Exam PHYSICAL EXAM CONSTITUTIONAL: She is a pleasant lady. She is cooperative. She is in no acute distress. She wears glasses. She is sitting up in the side of bed. HEENT: Pupils are equal and reactive with normal conjunctivae. Extraocular muscles were intact. Oral cavity, pharynx is edentulous, dry. LUNGS: Decreased in the bases, but clear. HEART: S1, S2, without murmur. ABDOMEN: Obese, soft, nontender, nondistended with positive bowel sounds. No guarding. EXTREMITIES: Without clubbing or cyanosis. Trace edema. SKIN: Warm to touch with light macular rash on trunk and neck INTRAVENOUS LINES: Left upper extremity peripheral without signs of complications. Previous PICC site, no problems. NEUROLOGIC: She is nonfocal, does have some leg pain. Answers questions appropriately. PSYCHIATRIC: Affect is appropriate. Labs Lab Laboratory Tests Test 09/22/18 09:03 09/22/18 22:30 09/23/18 04:00 White Blood Count 2.6 x10^3/uL (4.0-11.0) 2.9 x10^3/uL (4.0-11.0) Red Blood Count 3.21 x10^6/uL (3.50-5.40) 2.74 x10^6/uL (3.50-5.40) Hemoglobin 9.4 g/dL (12.0-15.5) 7.9 g/dL (12.0-15.5) Hematocrit 28.4 % (36.0-47.0) 24.4 % (36.0-47.0) Mean Corpuscular Volume 88 fL (79-100) 89 fL (79-100) Mean Corpuscular Hemoglobin 29 pg (25-35) 29 pg (25-35) Mean Corpuscular Hemoglobin Concent 33 g/dL (31-37) 33 g/dL (31-37) Red Cell Distribution Width 13.9 % (11.5-14.5) 13.6 % (11.5-14.5) Platelet Count 228 x10^3/uL (140-400) 217 x10^3/uL (140-400) Neutrophils (%) (Auto) 42 % (31-73) 34 % (31-73) Lymphocytes (%) (Auto) 36 % (24-48) 43 % (24-48) Monocytes (%) (Auto) 14 % (0-9) 14 % (0-9) Eosinophils (%) (Auto) 7 % (0-3) 9 % (0-3) Basophils (%) (Auto) 1 % (0-3) 1 % (0-3) Neutrophils # (Auto) 1.1 x10^3uL (1.8-7.7) 1.0 x10^3uL (1.8-7.7) Lymphocytes # (Auto) 0.9 x10^3/uL (1.0-4.8) 1.3 x10^3/uL (1.0-4.8) Monocytes # (Auto) 0.4 x10^3/uL (0.0-1.1) 0.4 x10^3/uL (0.0-1.1) Eosinophils # (Auto) 0.2 x10^3/uL (0.0-0.7) 0.3 x10^3/uL (0.0-0.7) Basophils # (Auto) 0.0 x10^3/uL (0.0-0.2) 0.0 x10^3/uL (0.0-0.2) Sodium Level 142 mmol/L (136-145) 138 mmol/L (136-145) Potassium Level 3.7 mmol/L (3.5-5.1) 4.1 mmol/L (3.5-5.1) Chloride Level 106 mmol/L (98-107) 104 mmol/L (98-107) Carbon Dioxide Level 25 mmol/L (21-32) 25 mmol/L (21-32) Anion Gap 11 (6-14) 9 (6-14) Blood Urea Nitrogen 2 mg/dL (7-20) 1 mg/dL (7-20) Creatinine 0.6 mg/dL (0.6-1.0) 0.8 mg/dL (0.6-1.0) Estimated GFR (Cockcroft-Gault) 102.7 73.7 Glucose Level 107 mg/dL (70-99) 91 mg/dL (70-99) Calcium Level 8.0 mg/dL (8.5-10.1) 7.7 mg/dL (8.5-10.1) Vitamin B12 Level 1201 pg/mL (247-911) HIV (1&2) Antibody Screen Nonreactive (Nonreactive) Vancomycin Level Trough 13.7 mcg/mL (10.0-20.0) Vancomycin Last Dose Date 09/22/18 Vancomycin Last Dose Time 1430 Objective Assessment Sepsis - POA 09/20 - ? med reaction - d/w Lab jayne this am. No blood cult reported. Rash ? med related H/o MSSA bacteremia Leukopenia - ? etiology -better but eosinophilia today and monocytosis - ? sepsis/virus/meds Eosinophila Back pain - improving anemia afib Plan Plan of Care Discont Vanc/Zosyn/Micafungin Dose Daptomycin PICC line F/u labs and cultures DELVIN ARORA MD Sep 23, 2018 07:58
[2018-09-23] MEDS: ALBUTEROL SULFATE 2.5 MG/3 ML NEBU. NEB SCH ×4 (08:13→21:49)
[2018-09-23] MEDS: NYSTATIN TOPICAL POWDER 15GM BOTTLE. TP SCH ×2 (09:00→20:44)
[2018-09-23] MEDS: POLYETHYLENE GLYCOL 3350 17 GM PACKET. PO SCH ×2 (09:00→20:47)
--- NOTE | 2018-09-23 09:03 | PDOC ---
SUBJECTIVE Subjective S: Doing okay, slight rash on the chest, low-grade fever O: Physical exam: Gen.: Well-nourished and well-developed, resting in bed Skin: Warm and dry, slightly erythematous patchy rash over the chest Psychiatric: Pleasant mood and affect Labs: White count 2.9, hemoglobin 7.9, platelets 217, neutrophils of 1000 Ferritin of 89 Iron sat of 10% Low TIBC HIV negative retic 1.8 B12 1201 Assessment and Plan: She is a 57-year-old female admitted with fever and myalgias and shortness of breath, transferred to [facility], w/ PICC line removal, on Abx per ID, with leukopenia and anemia Leukopenia: ANC 1000, smear w/ occas teardrop, no blasts, could consider G-CSF if neutrophils were less than 1000 if she developed any clinical decompensation Anemia: AOCI, suspect due to ongoing infection, with possible suppression from antibiotics, would keep an eye on her neutrophils and if they drop significantly lower than 1000 consider change of antibiotics as needed vs other in follow-up Fevers and infection: Abx per ID, only LG fever since here Dispo: Per others, we'll keep an eye on blood counts after she is dc'd as well Thank you kindly, and please do not hesitate to call with any questions. OBJECTIVE Vital Signs Vital Signs Date Time Temp Pulse Resp B/P (MAP) Pulse Ox O2 Delivery O2 Flow Rate FiO2 09/23/18 08:13 95 Nasal Cannula 1.0 09/23/18 07:00 98.3 75 18 132/54 (80) 95 Nasal Cannula 1.0 98.3 09/23/18 06:30 Nasal Cannula 1.0 09/23/18 05:32 Nasal Cannula 1.0 09/23/18 03:13 Nasal Cannula 1.0 09/23/18 03:00 98.9 78 18 124/72 (89) 96 Nasal Cannula 1.0 98.9 09/23/18 02:13 Nasal Cannula 1.0 09/22/18 23:03 Nasal Cannula 1.0 09/22/18 23:00 98.5 82 17 90/53 (65) 96 Nasal Cannula 1.0 98.5 09/22/18 20:16 Nasal Cannula 1.0 09/22/18 20:14 85 102/45 09/22/18 20:13 85 102/45 09/22/18 20:00 Nasal Cannula 1.0 09/22/18 19:41 Nasal Cannula 1.0 09/22/18 19:00 98.0 85 16 102/45 (64) 97 Nasal Cannula 1.0 98.0 09/22/18 17:13 Nasal Cannula 1.0 09/22/18 16:24 Nasal Cannula 1.0 09/22/18 15:17 Nasal Cannula 1.0 09/22/18 14:57 98.4 80 20 110/59 (76) 96 Nasal Cannula 2.0 98.4 09/22/18 12:33 Nasal Cannula 1.0 09/22/18 11:59 99.6 77 19 122/74 (90) 94 Nasal Cannula 2.0 99.6 09/22/18 11:42 Nasal Cannula 1.0 I & O Intake and Output 09/23/18 07:00 Intake Total 1840 ml Output Total 6 ml Balance 1834 ml Intake Oral 1840 ml Output Urine Total 6 ml # Voids 1 # Bowel Movements 3 COMMENT Lab Laboratory Tests Test 09/22/18 09:03 09/22/18 22:30 09/23/18 04:00 White Blood Count 2.6 x10^3/uL (4.0-11.0) 2.9 x10^3/uL (4.0-11.0) Red Blood Count 3.21 x10^6/uL (3.50-5.40) 2.74 x10^6/uL (3.50-5.40) Hemoglobin 9.4 g/dL (12.0-15.5) 7.9 g/dL (12.0-15.5) Hematocrit 28.4 % (36.0-47.0) 24.4 % (36.0-47.0) Mean Corpuscular Volume 88 fL (79-100) 89 fL (79-100) Mean Corpuscular Hemoglobin 29 pg (25-35) 29 pg (25-35) Mean Corpuscular Hemoglobin Concent 33 g/dL (31-37) 33 g/dL (31-37) Red Cell Distribution Width 13.9 % (11.5-14.5) 13.6 % (11.5-14.5) Platelet Count 228 x10^3/uL (140-400) 217 x10^3/uL (140-400) Neutrophils (%) (Auto) 42 % (31-73) 34 % (31-73) Lymphocytes (%) (Auto) 36 % (24-48) 43 % (24-48) Monocytes (%) (Auto) 14 % (0-9) 14 % (0-9) Eosinophils (%) (Auto) 7 % (0-3) 9 % (0-3) Basophils (%) (Auto) 1 % (0-3) 1 % (0-3) Neutrophils # (Auto) 1.1 x10^3uL (1.8-7.7) 1.0 x10^3uL (1.8-7.7) Lymphocytes # (Auto) 0.9 x10^3/uL (1.0-4.8) 1.3 x10^3/uL (1.0-4.8) Monocytes # (Auto) 0.4 x10^3/uL (0.0-1.1) 0.4 x10^3/uL (0.0-1.1) Eosinophils # (Auto) 0.2 x10^3/uL (0.0-0.7) 0.3 x10^3/uL (0.0-0.7) Basophils # (Auto) 0.0 x10^3/uL (0.0-0.2) 0.0 x10^3/uL (0.0-0.2) Sodium Level 142 mmol/L (136-145) 138 mmol/L (136-145) Potassium Level 3.7 mmol/L (3.5-5.1) 4.1 mmol/L (3.5-5.1) Chloride Level 106 mmol/L (98-107) 104 mmol/L (98-107) Carbon Dioxide Level 25 mmol/L (21-32) 25 mmol/L (21-32) Anion Gap 11 (6-14) 9 (6-14) Blood Urea Nitrogen 2 mg/dL (7-20) 1 mg/dL (7-20) Creatinine 0.6 mg/dL (0.6-1.0) 0.8 mg/dL (0.6-1.0) Estimated GFR (Cockcroft-Gault) 102.7 73.7 Glucose Level 107 mg/dL (70-99) 91 mg/dL (70-99) Calcium Level 8.0 mg/dL (8.5-10.1) 7.7 mg/dL (8.5-10.1) Vitamin B12 Level 1201 pg/mL (247-911) HIV (1&2) Antibody Screen Nonreactive (Nonreactive) Vancomycin Level Trough 13.7 mcg/mL (10.0-20.0) Vancomycin Last Dose Date 09/22/18 Vancomycin Last Dose Time 8370 MICHELLE EDWARDS MD Sep 23, 2018 09:03
[2018-09-23] MEDS: METOCLOPRAMIDE 10 MG TABLET. PO SCH ×4 (09:16→20:45)
[2018-09-23] MEDS: POTASSIUM CHLORIDE 20 MEQ TABLET.ER. PO SCH ×3 (09:16→20:46)
[2018-09-23] MEDS: LACTOBACILLUS RHAMNOSUS GG 1 CAPSULE. PO SCH ×2 (09:16→20:46)
[2018-09-23] MEDS: FUROSEMIDE 20 MG TABLET PO SCH ×2 (09:16→14:51)
[2018-09-23] MEDS: OXYBUTYNIN CHLORIDE 5 MG TABLET PO SCH (09:17)
[2018-09-23] MEDS: SERTRALINE 50 MG TABLET. PO SCH (09:17)
[2018-09-23] MEDS: ESTRADIOL 1 MG TABLET. PO SCH (09:17)
[2018-09-23] MEDS: GABAPENTIN 300 MG CAPSULE. PO SCH ×3 (09:17→20:45)
[2018-09-23] MEDS: METOPROLOL TART IMMED RELEASE 25 MG TABLET. PO SCH ×2 (09:17→20:46)
[2018-09-23] MEDS: diphenhydrAMINE HCL 25 MG CAPSULE PO PRN ×3 (10:06→20:45)
[2018-09-23] MEDS: DAPTOmycin (GENERIC) IVPB 560 MG in IV NORMAL SALINE 50ML 50 ML IV SCH (10:06)
[2018-09-23 11:00] VITALS: BP 127/74
--- NOTE | 2018-09-23 11:04 | NUR ---
SHANTI following pt. SHANTI confirmed with [facility] that for either Cephazolin or Dapto, pt will be responsible for $3.40/week. Spoke with pt and pt's at bedside and pt reported she has been using [facility] and [facility] and would like to resume services with them. SHANTI phoned both agencies and confirmed plan and faxed clinicals. Please call and fax orders to [facility], phone: [phone], fax; [phone], and [facility], phone: [phone], fax: [phone]. If pt goes home with a different IV abx, benefits will need to be rechecked with [facility]. Discussed with RN.
[2018-09-23] MEDS ORDERED: LIDOCAINE WITH 8.4% SOD BICARB 3 ML DISP.SYRIN. IJ ONE (13:30)
[2018-09-23 15:00] VITALS: BP 143/74
--- NOTE | 2018-09-23 16:08 | RAD ---
Exam: Fluoroscopic and ultrasound guided right percutaneous inserted central venous catheter placement 09/23/2018 4:05 PM .Indication: PICC Line insertion, going home on termite exterminator helper antibiotics Technique: Informed oral and written consent were obtained. The right upper extremity was prepped and draped using sterile barrier technique. All elements of maximal sterile barrier technique including the use of a cap, mask, sterile gown, sterile gloves, large sterile sheet, appropriate hand hygiene, and 2% chlorhexidine for cutaneous antisepsis (or acceptable alternative antiseptic per current guidelines) were followed for this procedure.. Real-time ultrasound demonstrated a patent right basilic vein. The right upper extremity was prepped and draped in usual sterile fashion. 1% lidocaine used for local anesthesia. Using real-time ultrasound guidance the access needle percutaneously punctured the selected vein. Reference ultrasound images were saved to the medical record. A guidewire was advanced through the needle to the cavoatrial junction, and a peel-away sheath placed. The catheter was cut to length and inserted through the peel-away sheath such that its tip is at the cavoatrial junction. The wire and sheath were removed, and the catheter secured in place, and a sterile dressing was applied. Catheter was found to flush and aspirate normally. No immediate complications are identified. FLUORO TIME: 1.2 DOSE AREA PRODUCT: 1 Gycm2 Impression: Ultrasound and fluoroscopically guided placement of a right upper extremity PICC line.
[2018-09-23 19:05] VITALS: BP 151/83
[2018-09-23] MEDS: MIRTAZAPINE 15 MG TABLET PO SCH (20:46)
[2018-09-23] MEDS: SIMVASTATIN 20 MG TABLET PO SCH (20:46)
[2018-09-23] MEDS: PRAZOSIN 1 MG CAPSULE. PO SCH (20:51)
[2018-09-23 23:05] VITALS: BP 94/57
--- NOTE | 2018-09-23 23:56 | PN ---
DATE: 09/23/2018 SUBJECTIVE: The patient is resting slightly propped up in bed, in no apparent distress. On questioning her, she stated that she has developed a maculopapular rash that is mildly pruritic, very extensive in her chest and abdomen, less so on the periphery. Apparently, Dr. Gonzalez had discontinued all the other antibiotics including the vancomycin, Zosyn and micafungin. She is now on daptomycin 560 mg once a day. Her lab work showed that she has marked renal failure, it has risen from 3% -9%. PHYSICAL EXAMINATION: GENERAL: When I examined her; however, she looked well and was clearly in no apparent respiratory distress, pale, but no jaundice, cyanosis, or thyromegaly. No jugular venous distention. No lower limb edema. VITAL SIGNS: Her heart rate was 75, blood pressure was 132/54, temperature was 98.3, respiratory rate was 18 and oxygen saturation was 95% on 1 liter of oxygen. HEAD, EYES, EARS, NOSE AND THROAT: Showed normocephalic, atraumatic. NECK: Supple. HEART: Showed normal first and second heart sounds with no gallop, rub or murmur. CHEST: Clear to auscultation. No crepitation or rhonchi. ABDOMEN: Distended, soft, nontender. NEUROLOGIC: She is awake, alert, responding appropriately. All cranial nerves intact. She moves extremities without difficulty. She ambulates without assistance or assistive devices. SKIN: Examination skin showed diffuse maculopapular rash. Her intake over the last 24 hours was 1420, no output was recorded. LABORATORY DATA: As of this morning, her white cell count is up to 2.9, hemoglobin down to 7.9, hematocrit 24.4, MCV 89 and platelet count 217,000 with a manual differential showed 34% polymorphs, 43% lymphocytes and 9% eosinophils. Her chemistry showed a serum sodium 138, potassium 4.1, chloride 104, bicarbonate 25, anion gap of 9, BUN 1, creatinine 0.8, estimated GFR was 74 mL per minute. Her glucose was 91. Her calcium was 7.7. ASSESSMENT: 1. Methicillin-sensitive Staphylococcus aureus bacteremia for which she has a PICC line placed and was on Ancef since 08/22/2018. 2. Recurrent episode of fever. She developed recurrent episode of fever for 4-5 days prior to admission up to 104 degree Fahrenheit, was found to have leukopenia and anemia. She has also relative lymphocytosis. She was switched to IV vancomycin, Zosyn, micafungin. Unfortunately, she developed generalized maculopapular rash that is mildly pruritic and therefore her antibiotics were discontinued and she is now on daptomycin. Other medical problems include: a. Chronic obstructive pulmonary disease. b. Fibromyalgia. c. Hyperlipidemia. d. 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 e. Hypothyroidism. f. Osteoporosis. g. Osteoarthritis. h. Chronic back pain. i. Obstructive sleep apnea, on CPAP. TYRONE GARCIA MD DR: ROSE MARIE/lupe JOB#: [id number] / [id number]
[2018-09-24 03:05] VITALS: BP 120/64
[2018-09-24] MEDS: diphenhydrAMINE HCL 25 MG CAPSULE PO PRN ×3 (04:15→12:14)
[2018-09-24] MEDS: oxyCODONE/APAP 5/325 1 TAB TABLET PO PRN ×3 (04:16→12:14)
[2018-09-24 04:36] LABS: BASO % 1 % (0-3); EOS # 0.2 x10^3/uL (0.0-0.7); EOS % 6 % (0-3); HEMATOCRIT 25.8 % (36.0-47.0); HEMOGLOBIN 8.4 g/dL (12.0-15.5); LYMPH # 1.7 x10^3/uL (1.0-4.8); LYMPH % 44 % (24-48); MEAN CORPUSCULAR HEMOGLOBIN 29 pg (25-35); MEAN CORPUSCULAR HGB CONC 33 g/dL (31-37); MEAN CORPUSCULAR VOLUME 89 fL (79-100); MONO # 0.4 x10^3/uL (0.0-1.1); MONO % 12 % (0-9); NEUT # 1.4 x10^3uL (1.8-7.7); NEUT % 37 % (31-73); PLATELET COUNT 224 x10^3/uL (140-400); RED BLOOD COUNT 2.91 x10^6/uL (3.50-5.40); RED CELL DISTRIBUTION WIDTH 13.7 % (11.5-14.5); WHITE BLOOD COUNT 3.8 x10^3/uL (4.0-11.0)
[2018-09-24 05:04] LABS: CALCIUM 8.2 mg/dL (8.5-10.1); CREATININE 0.7 mg/dL (0.6-1.0); GFR 85.9; POTASSIUM 4.1 mmol/L (3.5-5.1)
[2018-09-24] MEDS: LEVOTHYROXINE 150 MCG TABLET PO SCH (06:09)
[2018-09-24 07:00] VITALS: BP 118/73
[2018-09-24] MEDS: METOCLOPRAMIDE 10 MG TABLET. PO SCH ×2 (07:38→11:41)
[2018-09-24] MEDS: ALBUTEROL SULFATE 2.5 MG/3 ML NEBU. NEB SCH ×2 (07:45→12:05)
[2018-09-24] MEDS: FUROSEMIDE 20 MG TABLET PO SCH (08:19)
[2018-09-24] MEDS: METOPROLOL TART IMMED RELEASE 25 MG TABLET. PO SCH (08:20)
[2018-09-24] MEDS: GABAPENTIN 300 MG CAPSULE. PO SCH (08:21)
[2018-09-24] MEDS: ESTRADIOL 1 MG TABLET. PO SCH (08:21)
[2018-09-24] MEDS: LACTOBACILLUS RHAMNOSUS GG 1 CAPSULE. PO SCH (08:21)
[2018-09-24] MEDS: OXYBUTYNIN CHLORIDE 5 MG TABLET PO SCH (08:21)
[2018-09-24] MEDS: POTASSIUM CHLORIDE 20 MEQ TABLET.ER. PO SCH (08:21)
[2018-09-24] MEDS: POLYETHYLENE GLYCOL 3350 17 GM PACKET. PO SCH (08:22)
[2018-09-24] MEDS: SERTRALINE 50 MG TABLET. PO SCH (08:37)
[2018-09-24] MEDS: NYSTATIN TOPICAL POWDER 15GM BOTTLE. TP SCH (08:37)
[2018-09-24] MEDS: DAPTOmycin (GENERIC) IVPB 560 MG in IV NORMAL SALINE 50ML 50 ML IV SCH (09:32)
--- NOTE | 2018-09-24 10:42 | PDOC ---
Infectious Disease Note Subjective Subjective c/o back pain and persistent rash, though not any worse Denies F/CS/wheezing/SOA/CP/NV/D ROS ROS per HPI Vital Sign Vital Signs Vital Signs Date Time Temp Pulse Resp B/P (MAP) Pulse Ox O2 Delivery O2 Flow Rate FiO2 09/24/18 09:32 Nasal Cannula 1.0 09/24/18 08:20 74 118/73 09/24/18 07:45 96 09/24/18 07:00 98.9 18 98.9 Physical Exam PHYSICAL EXAM GENERAL: Propped up inbed, alert, relaxed appearance HEENT: Pupils are equal and reactive with normal conjunctivae. Oral cavity, pharynx, LUNGS: Decreased in the bases, but clear. HEART: S1, S2, without murmur. ABDOMEN: Obese, soft, nontender, nondistended with positive bowel sounds. No guarding. EXTREMITIES: Without clubbing or cyanosis. Trace edema. SKIN: Warm to touch with light macular rash on trunk and neck NEUROLOGIC: Alert, answers questions appropriately. RUE-PICC (09/23) clean Labs Lab Laboratory Tests Test 09/24/18 04:22 White Blood Count 3.8 x10^3/uL (4.0-11.0) Red Blood Count 2.91 x10^6/uL (3.50-5.40) Hemoglobin 8.4 g/dL (12.0-15.5) Hematocrit 25.8 % (36.0-47.0) Mean Corpuscular Volume 89 fL (79-100) Mean Corpuscular Hemoglobin 29 pg (25-35) Mean Corpuscular Hemoglobin Concent 33 g/dL (31-37) Red Cell Distribution Width 13.7 % (11.5-14.5) Platelet Count 224 x10^3/uL (140-400) Neutrophils (%) (Auto) 37 % (31-73) Lymphocytes (%) (Auto) 44 % (24-48) Monocytes (%) (Auto) 12 % (0-9) Eosinophils (%) (Auto) 6 % (0-3) Basophils (%) (Auto) 1 % (0-3) Neutrophils # (Auto) 1.4 x10^3uL (1.8-7.7) Lymphocytes # (Auto) 1.7 x10^3/uL (1.0-4.8) Monocytes # (Auto) 0.4 x10^3/uL (0.0-1.1) Eosinophils # (Auto) 0.2 x10^3/uL (0.0-0.7) Basophils # (Auto) 0.0 x10^3/uL (0.0-0.2) Sodium Level 139 mmol/L (136-145) Potassium Level 4.1 mmol/L (3.5-5.1) Chloride Level 103 mmol/L (98-107) Carbon Dioxide Level 28 mmol/L (21-32) Anion Gap 8 (6-14) Blood Urea Nitrogen 3 mg/dL (7-20) Creatinine 0.7 mg/dL (0.6-1.0) Estimated GFR (Cockcroft-Gault) 85.9 Glucose Level 94 mg/dL (70-99) Calcium Level 8.2 mg/dL (8.5-10.1) Creatine Kinase 30 U/L (26-192) Objective Assessment Sepsis - POA / - ? med reaction Rash ? med related H/o MSSA bacteremia Leukopenia - ? etiology -better but eosinophilia today and monocytosis - ? sepsis/virus/meds. improving Eosinophilia Back pain - improving Anemia A fib Plan Plan of Care Continue Daptomycin (started 09/23) -Previously on Vanc/Zosyn/Micafungin Monitor toxicities PICC maintenance care d/w Dr. Mcnulty Attending Co-Sign The patient was seen and interviewed as well as examined at the bedside. The chart was reviewed. The case was discussed. Agree with the plan of care. BRITTA ANDERSON APRN Sep 24, 2018 10:42 KAITLYN WELSH MD Sep 24, 2018 12:24
[2018-09-24 11:00] VITALS: BP 136/71
--- NOTE | 2018-09-24 13:56 | NUR ---
Pt discharged home to continue IV antibiotics at [facility] for three more doses. 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 Pt aware that she needs to be at [facility] around 0900 in order to continue with treatment at the same time. Pt d/c by w/c, accompanied by ex-. KALA PICC line in place, dressing changed this morning, good blood return from both lumens. No other changes from previous assessment.
--- NOTE | 2018-09-24 21:38 | PN ---
DATE: 09/24/2018 SUBJECTIVE: The patient is resting slightly propped up in bed, in no apparent distress. She is awake, alert, complaining of generalized weakness. Her skin rash is fading. PHYSICAL EXAMINATION: GENERAL: When I examined her, she looked well and was clearly in no apparent respiratory distress. She is pale, no jaundice, cyanosis, or thyromegaly. No jugular venous distension. No lower limb edema. VITAL SIGNS: Her heart rate was 74, blood pressure was 118/73, temperature was 98.9, respiratory rate was 18 and oxygen saturation was 96% on 1 liter of oxygen. HEAD, EYES, EARS, NOSE AND THROAT: Showed normocephalic, atraumatic. NECK: Supple. HEART: Showed normal first and second heart sounds. No gallop, rub or murmur. CHEST: Clear to auscultation. No crepitation or rhonchi. ABDOMEN: Distended, soft, nontender. NEUROLOGIC: She was awake, alert, responding appropriately. She moves all extremities without difficulty. SKIN: Examination skin showed that her maculopapular rash is fading, although has not disappeared completely. Her intake was 1814, no output was recorded. LABORATORY DATA: This morning showed a serum sodium 139, potassium 4.1, chloride 103, bicarbonate 28, anion gap of 8, BUN 3, creatinine 0.7, estimated GFR was 86 mL per minute. Her glucose was 94, calcium was 8.2 and CK was only 30. Her white cell count is up to 3800, hemoglobin 8.4, hematocrit 25.8, MCV 89 and platelet count 224,000 with an absolute neutrophil count of 1400. ASSESSMENT: 1. Methicillin-sensitive Staphylococcus aureus bacteremia for which she has a PICC line placed and was started on Ancef since 08/22/2018. 2. Recurrent episode of fever 4-5 days prior to admission with temperature that goes up to 104 degree Fahrenheit. Investigation showed that she has leukopenia, anemia, and relative lymphocytosis. Her antibiotic was switched to vancomycin, Zosyn, and micafungin. Unfortunately, she developed generalized maculopapular rash that is mildly pruritic and therefore, antibiotics were discontinued. 3. She has had a PICC line placed and she was started on IV daptomycin. 4. Other medical problems include: a. Chronic obstructive pulmonary disease. b. Fibromyalgia. c. Hyperlipidemia. d. Right middle cerebral artery territory infarct with left side hemiplegia. e. Hypothyroidism. f. Osteoporosis. g. Osteoarthritis. h. Chronic back pain. i. Obstructive sleep apnea, on CPAP. PLAN: To await the Infectious Disease decision as if she is to continue on daptomycin, she can be discharged and get her antibiotic daily at [facility] as an outpatient. TYRONE GARCIA MD DR: ROSE MARIE/lupe JOB#: [id number] / [id number]
[2018-09-26 20:08] LABS: ANA INTERP Positive (.)
--- NOTE | 2018-10-27 15:10 | DS ---
DATE OF DISCHARGE: 09/24/2018 HISTORY OF PRESENT ILLNESS: The patient is a 58-year-old female patient, who apparently was at [place], [place], watching her granddaughter and on 08/21/2018, she woke up around 2 a.m. in the morning, was unable to walk because of severe back pain, was taken to the Emergency Room of [facility] where she was diagnosed with pneumonia, apparently had a PICC line and from there, she was transferred to [facility] where she was told that she had Staph bacteremia. She was admitted to [facility] on 08/22/2018 and was discharged on 08/27/2018. She was sent home with home health. Her sister was trained to give her antibiotics in the form of cefazolin. She apparently has grown methicillin-sensitive Staph aureus and has been doing well up until 5 days prior to admission when she started spiking her temperature that has been going up and down. She came today for this admission to Emergency Room of [facility] with a temperature of 104. She does have cough which is mostly dry, generalized aches and chills. She took Tylenol and that apparently took care of the fever. She was evaluated in the Emergency Room and basically had a chest x-ray which showed that her right PICC line is in satisfactory position and no acute cardiopulmonary abnormalities detected. Her lab work shows that she has actual leukopenia with a white cell count of only 2100. She also has had anemia with hemoglobin of 9, hematocrit 27, and MCV was normal. Platelet count was normal. Her BUN and creatinine were normal. She does have also hyponatremia and hypokalemia. Her influenza A and B were negative and was transferred to [facility] for further evaluation and to consult the Infectious Disease specialist. She was seen by the Infectious Disease and she was switched to vancomycin and Zosyn and added micafungin. Unfortunately, she basically developed marked leukopenia and therefore her PICC line and the vancomycin, Zosyn and micafungin were discontinued. She was switched to daptomycin. She had another PICC line placed successfully and the patient was discharged to complete antibiotic treatment as an outpatient at [facility]. On the day of discharge, the patient was resting slightly propped up in bed, in no apparent respiratory distress. She is awake, alert, complaining of generalized weakness. Her skin rash is fading. PHYSICAL EXAMINATION: GENERAL: On examining her, she looked well and was clearly in no apparent respiratory distress. She was pale, not jaundiced or cyanosis. No lymphadenopathy, no thyromegaly. No jugular venous distention. No limb edema. VITAL SIGNS: Her heart rate was 74, blood pressure was 118/73, temperature was 98.9, respiratory rate was 18 and oxygen saturation was 96% on 1 liter of oxygen. HEAD, EYES, EARS, NOSE AND THROAT: Normocephalic, atraumatic. NECK: Supple. HEART: Showed normal first and second heart sounds with no gallop, rub or murmur. CHEST: Clear to auscultation. No crepitation or rhonchi. ABDOMEN: Distended, soft, nontender. NEUROLOGICAL: She was awake, alert, responding appropriately. She moves her extremities without difficulty. SKIN: Examination of the skin showed that her maculopapular rash is fading, although has not disappeared completely. LABORATORY DATA: Her intake and output were incompletely recorded. Her lab work showed that her serum sodium was 139, potassium 4.1, chloride 103, bicarbonate 28, anion gap of 8, BUN 3, creatinine 0.7, and estimated GFR of 86 mL per minute. Her glucose was 94 and calcium was 8.2. CK was only 30. Her white cell count was 3800, hemoglobin 8.4, hematocrit 25.8, MCV 89 and platelet count 229,000 with an absolute neutrophil count of 1400. DISCHARGE MEDICATIONS: She was discharged to continue on albuterol sulfate by nebulizer 4 times a day, alprazolam 2 mg every 12 hours, estradiol 1 mg daily, furosemide 20 mg twice a day, gabapentin 600 mg 3 times a day, levothyroxine sodium 150 mcg daily, Lidoderm patch 2 patches to her back daily on for 12 hours and off for 12 hours, metoclopramide 10 mg before meals and bedtime, metoprolol tartrate 25 mg twice a day, mirtazapine 50 mg at bedtime, oxybutynin chloride for Ditropan XL 1 tablet daily. She is on oxycodone/APAP 5/325 one tablet every 4 hours, polyethylene glycol 17 grams twice a day, potassium chloride 20 mEq daily, prazosin 5 mg capsule one capsule at bedtime, saccharomyces boulardii for Florastor 500 mg twice a day, sertraline 200 mg daily and simvastatin 20 mg at bedtime. FINAL DISCHARGE DIAGNOSES: 1. Methicillin-sensitive Staphylococcus aureus bacteremia, for which she has a PICC line placed and was started on Ancef since 08/22/2018. 2. Recurrent episode of fever for 5 days prior to admission with temperature that goes up to 104-degree Fahrenheit. Investigation showed that she has leukopenia, anemia and reactive thrombocytosis, lymphocytosis. Her antibiotics were switched to vancomycin, Zosyn, and micafungin. Unfortunately, she developed generalized maculopapular rash that is mildly pruritic and therefore she was started on IV daptomycin. The patient has multiple other medical problems including: A. Chronic obstructive pulmonary disease. B. Fibromyalgia. C. Hyperlipidemia. D. Right middle cerebral artery territory infarct with left side hemiplegia. E. Hypothyroidism. F. Osteoporosis. G. Osteoarthritis. H. Chronic back pain. I. Obstructive sleep apnea. TYRONE GARCIA MD DR: ROSE MARIE/lupe JOB#: [id number] / [id number]
== END 2018-09-24 13:55 | disposition home or self-care (01) | DRG 871 ==
LOC: 6 SOUTH 11:09
PROVIDERS: ADMIT Internal Medicine; ATTEND Internal Medicine
PROC: 02HV33Z Insertion of Infusion Device into Superior Vena Cava, Percutaneous Approach (ICD-10-PCS; principal; 2018-09-23)
PROC: B5181ZA Fluoroscopy of Superior Vena Cava using Low Osmolar Contrast, Guidance (ICD-10-PCS; 2018-09-23)
PROC: B548ZZA Ultrasonography of Superior Vena Cava, Guidance (ICD-10-PCS; 2018-09-23)
DX: A41.9 Sepsis, unspecified organism (principal); E43 Unspecified severe protein-calorie malnutrition; E87.1 Hypo-osmolality and hyponatremia; I69.354 Hemiplegia and hemiparesis following cerebral infarction affecting left non-dominant side; E87.6 Hypokalemia; D64.9 Anemia, unspecified; Z68.37 Body mass index [BMI] 37.0-37.9, adult; M79.7 Fibromyalgia; E78.5 Hyperlipidemia, unspecified; E03.9 Hypothyroidism, unspecified; M81.0 Age-related osteoporosis without current pathological fracture; M19.90 Unspecified osteoarthritis, unspecified site; G89.29 Other chronic pain; G47.33 Obstructive sleep apnea (adult) (pediatric); I10 Essential (primary) hypertension; D72.819 Decreased white blood cell count, unspecified; I48.91 Unspecified atrial fibrillation; K59.09 Other constipation; I48.0 Paroxysmal atrial fibrillation; F32.9 Major depressive disorder, single episode, unspecified; E66.9 Obesity, unspecified; D72.1 Eosinophilia; L29.9 Pruritus, unspecified; D63.8 Anemia in other chronic diseases classified elsewhere; J44.9 Chronic obstructive pulmonary disease, unspecified; Z90.710 Acquired absence of both cervix and uterus; Z90.49 Acquired absence of other specified parts of digestive tract; Z88.8 Allergy status to other drugs, medicaments and biological substances; Z91.040 Latex allergy status; Z80.1 Family history of malignant neoplasm of trachea, bronchus and lung; Z87.891 Personal history of nicotine dependence; Z87.01 Personal history of pneumonia (recurrent); Z99.81 Dependence on supplemental oxygen
CPT/HCPCS: 36415; 36569; 76937; 77001; 80048; 80053; 80202; 82550; 82607; 82728; 83540; 83550; 85007; 85025; 85045; 86038; 86703; 94640; 94760; C1751; C1892; J0878; J2248; J2543; J3370; J7050; J7613; J8597; Q0163; J7030